=== PATIENT | male | born 1995 | race Caucasian/White ===

== ENCOUNTER 2020-11-03 16:19 | Outpatient (RCR) | payer BC, MEDICARE, SELFPAY | END 2020-11-03 19:00 | disposition home or self-care (01) | LOC: PT 16:19 | PROVIDERS: PCP Family Medicine; Referring Provider Nurse Practitioner Primary Care; Visit Provider Nurse Practitioner Primary Care | DX: G82.20 Paraplegia, unspecified (principal); S24.102D Unspecified injury at T2-T6 level of thoracic spinal cord, subsequent encounter; Z99.3 Dependence on wheelchair | CPT/HCPCS: 97162 ==

== ENCOUNTER 2021-06-10 07:34 | Emergency (ER) | payer BC, MEDICARE, SELFPAY ==
[2021-06-10 07:35] VITALS: BP 114/45; PULSE 108; RESP 16; TEMP 36.6; O2SAT 100; BMI 31.1
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
--- NOTE | 2021-06-10 08:12 | EX.ED.DYSGE1 ---
HPI History of Present Illness Chief Complaint: Flank Pain Detail of Chief Complaint: Concern for UTI or kidney stone Informant: patient Narrative Narrative: Patient presents secondary to concern for UTI or kidney stone. He has history of paraplegia and states he cannot feel anything below his nipple line. He has a suprapubic catheter. He states due to change in color and smell of his urine he is concerned he may have an infection or possibly a kidney stone. He does report having a mild headache with some nausea. He had diarrhea yesterday. He denies fever or chills. [facility] Medical History Paraplegia following spinal cord injury Home Medications albuterol sulfate [Ventolin Hfa] INHALATION PRN PRN 09/04/15 [History Last Taken Unknown] baclofen 10 mg PO BID 09/04/15 [History Last Taken Unknown] dextroamphetamine-amphetamine [Adderall 20 mg Tablet] 20 mg PO DAILY 03/17/16 [History Last Taken Unknown] tizanidine 1 mg PO QHS 03/17/16 [History Last Taken Unknown] levofloxacin 750 mg PO DAILY #4 tab 06/10/21 [Rx Last Taken Unknown] Allergy/AdvReac Type Severity Reaction Status Date / Time hydromorphone HCl Allergy Anaphylaxis Verified 06/10/21 07:38 [From Dilaudid] Social History Smoking Status: Former smoker ROS ROS ED Constitutional Constitutional ED: Denies chills or fever(s) Eyes Eyes: Denies change in vision ENT ENT ED: Denies sore throat Cardiovascular Cardiovascular: Denies chest pain Respiratory/Chest Respiratory/Chest: Denies cough or dyspnea Gastrointestinal Gastrointestinal: Reports nausea; Denies abdominal pain, diarrhea or vomiting Genitourinary Genitourinary ED: Reports other Details: Change in color and smell of urine Integumentary Denies rash Neurologic Neurologic: Reports headache(s); Denies weakness Psychiatric Psychiatric: Denies anxiety or depression Allergic/Immunologic Allergic/Immunologic ED: Denies urticaria EXAM Physical Exam Const Vital Signs: 06/10/21 07:35 Temperature 97.9 F Temperature Source Temporal Pulse Rate 108 H Respiratory Rate 16 Blood Pressure 114/45 L Blood Pressure Mean 68 Pulse Ox 100 Oxygen Delivery Method Room Air Positive well nourished and well developed General Appearance ED: well developed Eyes PERRL and EOMs intact bilaterally Chest Wall inspection of chest normal and palpation of chest normal Resp normal respiratory effort and clear to auscultation bilaterally Cardio regular rate and regular rhythm GI normal to inspection, nondistended, normoactive bowel sounds Palpation: soft Extremity Extremity Narrative: Muscle atrophy lower extremities Neuro oriented x3 Sensorium / Orientation: alert Psych mental status grossly normal Skin no rashes or lesions noted MDM MDM MDM Narrative Medical decision making narrative: Lab work, urinalysis, CT flank obtained. Patient was given Toradol and Zofran for pain and nausea. Lab Data Attestation: I reviewed the patient's lab results. Labs: Laboratory Results - last 24 hr 06/10/21 06/10/21 06/10/21 08:19 08:19 08:28 WBC 6.1 RBC 4.54 L Hgb 13.2 Hct 39.3 L MCV 86.6 MCH 29.1 MCHC 33.6 RDW Std Deviation 40.6 RDW Coeff of Qi 13.0 Plt Count 259 MPV 10.6 Immature Gran % (Auto) 0.300 Neut % (Auto) 63.6 Lymph % (Auto) 22.0 Alfalfa % (Auto) 7.9 Eos % (Auto) 5.4 H Baso % (Auto) 0.8 Absolute Neuts (auto) 3.9 Absolute Lymphs (auto) 1.34 Nucleated RBC % 0 Sodium 137 Potassium 4.1 Chloride 105 Carbon Dioxide 25.0 Anion Gap 7 BUN 14 Creatinine 0.91 Estim Creat Clear Calc 137.80 Est GFR (MDRD) Af Amer 128 Est GFR (MDRD) Non-Af 105 BUN/Creatinine Ratio 15.3 Glucose 97 Calcium 8.7 Urine Color Yellow Urine Clarity Sl. Cloudy Urine pH 8.0 Ur Specific [place] 1.015 Urine Protein 100 H Urine Glucose (UA) Normal Urine Ketones Negative Urine Occult Blood 150 H Urine Nitrite Positive H Urine Bilirubin Negative Urine Urobilinogen Normal Ur Leukocyte Esterase 500 H Urine RBC 10-25 SEEN Urine WBC 25-50 SEEN Ur Squamous Epith Cells 0-5 SEEN Amorphous Sediment 1+ Urine Bacteria 2+ Urine Mucus 0 SEEN Radiography Diagnostic Testing: Radiology Impression Abdomen/Pelvis CT 06/10/21 07:51 IMPRESSION: No acute abnormality is seen. Electronically Signed: Aram Hernandez MD at 9:27 EDT , Service support , Treatment and Re-Evaluation Comments:: Patient's test results reviewed. Renal function is normal. Urinalysis does reveal infection and urine culture is sent. He received a dose of IV Rocephin. CT flank is unremarkable. Patient be discharged with a prescription for Levaquin. He will be referred to urology for follow-up. Discharge Plan Triage Chief Complaint: Flank Pain ED Provider: Deepika Sanchez Dx/Rx/DC Orders Clinical Impression: Acute UTI Instructions: ED Bladder Infection, Male (Adult) Prescriptions: New levofloxacin 750 mg tablet 750 mg PO DAILY Qty: 4 RF: 0 No Action baclofen 10 MG tablet 10 mg PO BID RF: 0 albuterol sulfate [Ventolin HFA] 1 INHALER inhaler inhalation PRN PRN (Reason: Sob &/Or Wheezing) RF: 0 tizanidine 2 MG tablet 1 mg PO QHS RF: 0 dextroamphetamine-amphetamine [Adderall] 20 MG tablet 20 mg PO DAILY RF: 0 Primary Care Provider: Care Physician,No Primary Referrals: Jose Bardales MD [STAFF PHYSICIAN] - 1-2 Weeks Care Physician,No Primary [Primary Care Provider] - Disposition Disposition: Home, Self Care
[2021-06-10] MEDS: Ketorolac 30 MG/ML Syringe IV (08:23)
[2021-06-10] MEDS: 0.9% Normal Saline 1,000 ML 150 ML IV (08:23)
[2021-06-10] MEDS: Ondansetron 4 MG/2 ML Vial IV (08:23)
[2021-06-10 08:30] LABS: Absolute Lymphocyte Count 1.34 X10^3/uL (0.83-4.51); Absolute Neutrophil Count 3.9 X10^3/uL (2.0-7.7); Basophil# 0.05 X10^3/uL; Basophil% 0.8 % (0-1); Eosinophil# 0.33 X10^3/uL; Eosinophils% 5.4 % (0-5); Hematocrit 39.3 % (40-54); Hemoglobin 13.2 g/dL (13.0-16.5); Lymphocyte # 1.34 X10^3/ul (0.83-4.51); Mean Corp Hgb Conc 33.6 g/dL (32-36); Mean Corpuscular Hgb 29.1 pg (27.0-32.0); Mean Corpuscular Volume 86.6 fL (80-94); Mean Platelet Vol. 10.6 fl (6.2-12.0); Monocyte# 0.48 X10^3/uL; Monocyte% 7.9 % (0-10); NRBC Flagged by Analyzer 0 % (0-5); Neutrophil # 3.87 X10^3/uL (2.7-7.7); Neutrophil % 63.6 % (47-70); Platelet Count 259 K/mm3 (150-450); RBC Distribution Width SD 40.6 fl (35.1-43.9); Red Blood Count 4.54 M/mm3 (4.6-6.2); White Blood Count 6.1 K/mm3 (4.4-11.0)
[2021-06-10 08:33] LABS: Mucous, Urine 0 SEEN /hpf (<or=2+)
[2021-06-10 08:41] LABS: Anion Gap 7 (5-15); BUN 14 mg/dL (7-18); BUN/Creat Ratio 15.3 RATIO (10-20); Calcium,Total 8.7 mg/dL (8.5-10.1); Chloride 105 mmol/L (98-107); Creatinine, Serum 0.91 mg/dL (0.70-1.30); EST Glomerular Filtration Rate 105 mL/min (>60); Est Glom Filt Rate - Afr Amer 128 mL/min (>60); Glucose 97 mg/dL (74-106); Potassium 4.1 mmol/L (3.5-5.1); Sodium Level 137 mmol/L (136-145)
[2021-06-10 08:42] LABS: Color, Urine Yellow (Yellow); Glucose, Dipstick Normal (Normal); Ketone-Dipstick Negative (Negative); Leukocyte Esterase-Dipstick 500 /ul (Negative); Nitrite-Dipstick Positive (Negative); Occult Blood-Urine 150 /ul (Negative); Protein-Dipstick 100 mg/dl (Negative); Specific Gravity, Urine 1.015 (1.002-1.030); Urine Bilirubin Dipstick Negative (Negative); Urine Clarity Sl. Cloudy (Clear); Urine Urobilinogen Normal (Normal)
[2021-06-10 08:51] LABS: Amorphous Sediment 1+; Bacteria 2+ /hpf (None Seen); Red Blood Cells-Urine 10-25 SEEN /hpf (0-5); Squamous Epithelial Cells - UA 0-5 SEEN /hpf (0-5); White Blood Cells 25-50 SEEN /hpf (0-5)
[2021-06-10] MEDS: Ceftriaxone 1 GM/50 ML BAG IV (09:08)
[2021-06-10 10:37] VITALS: BP 102/50; PULSE 55; RESP 18; O2SAT 97
== END 2021-06-10 10:39 | disposition home or self-care (01) ==
PROVIDERS: Emergency Provider Emergency Medicine
DX: N39.0 Urinary tract infection, site not specified (principal); Z87.891 Personal history of nicotine dependence
CPT/HCPCS: 74176; 80048; 81001; 85025; 87077; 87086; 87088; 87186; 96361; 96365; 96375; 99284; J2405

== ENCOUNTER 2022-02-04 01:55 | Emergency (ER) | payer BC, MEDICARE, SELFPAY ==
[2022-02-04 01:56] VITALS: BP 155/83; PULSE 72; RESP 18; TEMP 36.6; O2SAT 97; BMI 28.5
--- NOTE | 2022-02-04 02:10 | RAD_ITS ---
EXAM: XR ABDOMEN, 2 VIEWS AND XR CHEST, 1 VIEW CLINICAL INDICATION: constipation TECHNIQUE: Frontal view of the chest, frontal view of the abdomen/pelvis and upright or decubitus view of the abdomen. This report was created using [employer] report generation technology. COMPARISON: None. 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 Moderate osteoarthrosis of the left hip joint. No acute appearing fracture or malalignment. No other unusual lytic or sclerotic lesions of bone Soft tissues are unremarkable. 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 Moderate osteoarthrosis of the left hip joint. No acute appearing fracture or malalignment. Electronically Signed: Evangelist Jaime MD at 3:01 EDT ,
--- NOTE | 2022-02-04 02:10 | CT_ITS ---
EXAM: CT HEAD WITHOUT INTRAVENOUS CONTRAST CLINICAL INDICATION: headache TECHNIQUE: Multiple axial images were obtained of the head without intravenous contrast. CTDIvol = ( 44.99 ) mGy, DLP = ( 846.73 ) mGycm This CT exam was performed using one or more of the following dose reduction techniques: automated exposure control, adjustment of the mA and/or kV according to patient size, and/or use of iterative reconstruction technique. This report was created using [employer] report generation technology. COMPARISON: None. FINDINGS: BRAIN AND EXTRA-AXIAL SPACES: Unremarkable. No intra- or extra-axial hemorrhage. No evidence of acute infarct. No intracranial mass or mass effect. There is preservation of the antonio/white matter interface. Posterior fossa structures are unremarkable. Ventricles are appropriate for age. No hydrocephalus. Basal cisterns are patent. BONES/JOINTS: Unremarkable. No discrete lytic or blastic abnormalities. SINUSES: Mild scattered paranasal sinus mucosal thickening with no air-fluid levels. MASTOID AIR CELLS: Unremarkable. Clear. ORBITS: Visualized globes, extraocular muscles, optic nerves and retrobulbar fat appear unremarkable. CT/Brain/Head without Contrast IMPRESSION: Negative head/brain CT without intravenous contrast. Electronically Signed: Evangelist Jaime MD at 2:51 EDT ,
--- NOTE | 2022-02-04 02:14 | EDS_ITS ---
HPI History of Present Illness Chief Complaint: Headache Informant: patient Narrative Narrative: Patient's primary complaint is constipation. He does have a history of upper thoracic spinal cord injury 7 years ago. He has some chronic constipation but normally moves his bowels about every 2 occasionally 3 days. Its been about 5 days since he had a normal bowel movement. He has decreased sensation in the abdomen so he does not really feel discomfort. He is eating and drinking normally. No fevers or chills. Tonight he had a headache. This occurred somewhat after trying to move his bowels but was not actually an acute sudden onset or thunderclap. It is mostly diffuse. No neurologic complaint. Nothing makes symptoms specifically better or worse. He feels the combination of headache with some sweaty in his shoulders and head and nausea was typical of a autonomic dysreflexia episode. This was likely brought on by trying to have a bowel movement. It is improving now. [facility] Medical History Paraplegia following spinal cord injury Home Medications baclofen 10 mg PO BID 09/04/15 [History Last Taken Unknown] Allergy/AdvReac Type Severity Reaction Status Date / Time hydromorphone HCl Allergy Anaphylaxis Verified 06/10/21 07:38 [From Dilaudid] Social History Smoking Status: Former smoker ROS ROS ED Constitutional Constitutional ED: Denies chills or fever(s) Eyes Eyes: Denies blurry vision ENT ENT ED: Denies rhinorrhea or sore throat Cardiovascular Cardiovascular: Denies chest pain or palpitations Respiratory/Chest Respiratory/Chest: Denies cough or dyspnea Gastrointestinal Gastrointestinal: Reports constipation and nausea; Denies vomiting Musculoskeletal Musculoskeletal: Denies myalgias Integumentary Denies rash Neurologic Neurologic: Reports headache(s); Denies paresthesias or weakness Psychiatric Psychiatric: Denies anxiety or depression Endocrine Endocrinology: Denies polydipsia or polyuria Allergic/Immunologic Allergic/Immunologic ED: Denies urticaria EXAM Physical Exam Const Vital Signs: 02/04/22 01:56 Temperature 97.9 F Temperature Source Oral Pulse Rate 72 Respiratory Rate 18 Blood Pressure 155/83 H Blood Pressure Mean 107 Pulse Ox 97 Oxygen Delivery Method Room Air Positive well nourished and well developed; Negative for unkempt Constitutional Narrative: Patient awake alert and appropriate. Nontoxic in appearance. General Appearance ED: well developed and NAD; Negative for unkempt, cyanotic or diaphoretic HEENT Reports moist mucous membranes Negative for trauma or tenderness Eyes PERRL and EOMs intact bilaterally Eyes Narrative: No photophobia. Neck no lymphadenopathy, supple and no JVD Neck Narrative: No pain with motion. No meningismus General: Negative for tenderness Chest Wall inspection of chest normal Resp normal respiratory effort and clear to auscultation bilaterally Effort and Inspection: Negative for pain with movement Auscultation: Negative for rales, rhonchi or wheezes Cardio regular rate and regular rhythm GI normal to inspection, nondistended, normoactive bowel sounds, non-tender, non- distended and no masses Auscultation: normoactive bowel sounds Palpation: soft; Negative for tender or guarding Narrative: Patient has long-term suprapubic catheter. It has been draining well. He did change it just to make sure that that was not causing his symptoms of autonomic dysreflexia. He has had normal urine output and appearance. Back/Spine no CVA tenderness Extremity Extremity Narrative: Wasting of the lower extremities consistent with his spinal cord injury. Neuro oriented x3 and CN's II-XII intact bilaterally Neuro Narrative: Decreased motor and sensation in the lower body which is chron ic and unchanged. Sensorium / Orientation: alert; Negative for orientation impaired, lethargic or stuporous Psych mental status grossly normal Appearance: Negative for unkempt Attitude: No agitated Mood & Affect: Negative for depressed, anxious or tearful Skin no rashes or lesions noted MDM MDM MDM Narrative Medical decision making narrative: Patient's labs show normal white count hemoglobin platelets in the CBC. Electrolytes are overall unremarkable. Glucose is minimally elevated at 119. Liver function test lipase normal. X- rays show orthopedic changes but no acute process of the bowels or signs of obstruction. There is some increased stool but not a focal large amount just in the rectum. We discussed options. We tried enema. The only difficulty is that this patient cannot really hold the fluid in. Therefore we did not get a large amount of stool. We again discussed options. We will send him home with magnesium citrate. He will use laor-ozo-iocrebj MiraLAX and wean off over a week. We talked about the other symptoms that he got with trying to move the bowels. He states he normally does get some autonomic dysreflexia with bowel movements but this was more than normal. However, he also has not moved his bowels for some time. We discussed reasons to return. Lab Data Attestation: I reviewed the patient's lab results. Labs: Laboratory Results - last 24 hr 02/04/22 02/04/22 02:20 02:20 WBC 6.2 RBC 4.64 Hgb 13.6 Hct 39.4 L MCV 84.9 MCH 29.3 MCHC 34.5 RDW Std Deviation 40.2 RDW Coeff of Qi 13.0 Plt Count 259 MPV 10.8 Immature Gran % (Auto) 0.300 Neut % (Auto) 59.8 Lymph % (Auto) 27.1 [place] % (Auto) 8.6 Eos % (Auto) 3.2 Baso % (Auto) 1.0 Absolute Neuts (auto) 3.7 Absolute Lymphs (auto) 1.68 Nucleated RBC % 0 Sodium 139 Potassium 3.6 Chloride 108 H Carbon Dioxide 26.0 Anion Gap 5 BUN 16 Creatinine 0.92 Estim Creat Clear Calc 131.21 Est GFR (MDRD) Af Amer 125 Est GFR (MDRD) Non-Af 104 BUN/Creatinine Ratio 17.3 Glucose 119 H Calcium 8.8 Total Bilirubin 0.40 AST 15 ALT 28 Alkaline Phosphatase 71 Total Protein 7.6 Albumin 3.7 Globulin 3.9 Albumin/Globulin Ratio 0.9 Lipase 151 Radiography Diagnostic Testing: Clinical Impression(s) from Imaging Studies Acute Abdomen Series 02/04/22 02:10 IMPRESSION: Chronic destructive changes about the right hip with 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 Moderate osteoarthrosis of the left hip joint. No acute appearing fracture or malalignment. Electronically Signed: Evangelist Jaime MD at 3:01 EDT , Brain CT 02/04/22 02:10 IMPRESSION: Negative head/brain CT without intravenous contrast. Electronically Signed: Evangelist Jaime MD at 2:51 EDT , Discharge Plan Triage Chief Complaint: Headache ED Provider: Alen Paniagua Dx/Rx/DC Orders Clinical Impression: Constipation, Autonomic dysreflexia Instructions: ED Constipation (Adult) Prescriptions: No Action baclofen 10 MG tablet 10 mg PO BID RF: 0 Primary Care Provider: Care Physician,No Primary Referrals: Lynnette Conde MD [STAFF PHYSICIAN] - 3-5 Days if not improving Care Physician,No Primary [Primary Care Provider] - Disposition Disposition: Home, Self Care
[2022-02-04] MEDS: DiphenhydrAMINE 50 MG/ML Syringe 25 MG IV (02:20)
[2022-02-04] MEDS: Ondansetron 4 MG/2 ML Vial IV (02:20)
[2022-02-04 02:24] LABS: Absolute Lymphocyte Count 1.68 X10^3/uL (0.83-4.51); Absolute Neutrophil Count 3.7 X10^3/uL (2.0-7.7); Basophil# 0.06 X10^3/uL; Eosinophils% 3.2 % (0-5); Hematocrit 39.4 % (40-54); Hemoglobin 13.6 g/dL (13.0-16.5); Lymphocyte # 1.68 X10^3/ul (0.83-4.51); Lymphocyte % 27.1 % (19-41); Mean Corp Hgb Conc 34.5 g/dL (32-36); Mean Corpuscular Hgb 29.3 pg (27.0-32.0); Mean Corpuscular Volume 84.9 fL (80-94); Mean Platelet Vol. 10.8 fl (6.2-12.0); Monocyte# 0.53 X10^3/uL; Monocyte% 8.6 % (0-10); NRBC Flagged by Analyzer 0 % (0-5); Neutrophil % 59.8 % (47-70); Platelet Count 259 K/mm3 (150-450); RBC Distribution Width SD 40.2 fl (35.1-43.9); Red Blood Count 4.64 M/mm3 (4.6-6.2); White Blood Count 6.2 K/mm3 (4.4-11.0)
[2022-02-04 02:41] LABS: ALB/GLOB Ratio 0.9 RATIO (0.9-2.4); AST(SGOT) 15 U/L (15-37); Alanine Aminotransfer ALT/SGPT 28 U/L (16-61); Albumin, Serum 3.7 g/dL (3.2-5.0); Alkaline Phosphatase 71 U/L (45-117); Anion Gap 5 (5-15); BUN 16 mg/dL (7-18); BUN/Creat Ratio 17.3 RATIO (10-20); Calcium,Total 8.8 mg/dL (8.5-10.1); Chloride 108 mmol/L (98-107); Creatinine, Serum 0.92 mg/dL (0.70-1.30); EST Glomerular Filtration Rate 104 mL/min (>60); Est Glom Filt Rate - Afr Amer 125 mL/min (>60); Estimated Creatinine Clearance 131.21 ml/min; Globulin 3.9 g/dL (2.2-4.2); Glucose 119 mg/dL (74-106); Lipase 151 U/L (73-393); Potassium 3.6 mmol/L (3.5-5.1); Protein, Total 7.6 g/dL (6.4-8.2); Sodium Level 139 mmol/L (136-145)
[2022-02-04 03:47] VITALS: BP 144/78; PULSE 67; RESP 18; O2SAT 99
[2022-02-04] MEDS: Magnesium Citrate 300 ML PO (03:56)
== END 2022-02-04 04:00 | disposition home or self-care (01) ==
PROVIDERS: Emergency Provider Emergency Medicine; Visit Provider Emergency Medicine
DX: K59.00 Constipation, unspecified (principal); G90.4 Autonomic dysreflexia; Z87.891 Personal history of nicotine dependence
CPT/HCPCS: 70450; 74022; 80053; 83690; 85025; 96361; 96374; 96375; 99285; J7030; J2405

== ENCOUNTER 2024-05-18 20:24 | Emergency (ER) | payer BC, MEDICARE, SELFPAY ==
[2024-05-18 20:24] VITALS: BP 150/73; PULSE 85; RESP 14; TEMP 36.1; O2SAT 97
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
--- NOTE | 2024-05-18 20:38 | RAD_ITS ---
STUDY: X-RAY - CERVICAL SPINE REASON FOR EXAM: Male, 28 years old. Headache and neck pain after a fall TECHNIQUE: 3 view(s) of the cervical spine were obtained. COMPARISON: None FINDINGS: Normal anterior atlantoaxial articulation. Normal odontoid process. Normal cervical lordosis. Normal vertebral bodies and endplates. Normal disc space heights. Normal visualized intervertebral neuroforamina. The soft tissue structures are unremarkable. Surgical hardware in the upper thoracic spine and free of complication RAD/Cerv Spine 2 or 3 Views IMPRESSION: Normal x-ray examination of the visualized cervical spine. Electronically Signed: Temo Contreras MD at 21:51 EDT ,
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
[2024-05-18] MEDS: oxyCODONE 5 MG Tablet 10 MG PO (20:47)
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
== END 2024-05-18 22:26 | disposition home or self-care (01) ==
PROVIDERS: Emergency Provider Emergency Medicine; Visit Provider Emergency Medicine
DX: S16.1XXA Strain of muscle, fascia and tendon at neck level, initial encounter (principal); S39.012A Strain of muscle, fascia and tendon of lower back, initial encounter; F17.290 Nicotine dependence, other tobacco product, uncomplicated; S29.019A Strain of muscle and tendon of unspecified wall of thorax, initial encounter; V89.2XXA Person injured in unspecified motor-vehicle accident, traffic, initial encounter
CPT/HCPCS: 72040; 72072; 72100; 99282

== ENCOUNTER 2024-05-25 21:56 | Emergency (ER) | payer BC, MEDICARE, SELFPAY ==
[2024-05-25 21:57] VITALS: BP 152/60; PULSE 88; RESP 16; TEMP 36.4; O2SAT 98
[2024-05-25 22:09] VITALS: BMI 29.3
--- NOTE | 2024-05-25 22:41 | CT_ITS ---
STUDY: CT ABDOMEN AND PELVIS WITH CONTRAST REASON FOR EXAM: Male, 28 years old. low back, diffuse abd pain; paraplegic RADIATION DOSAGE (If Supplied By Facility): CTDIvol = ( 20.47 ) mGy, DLP = ( 1556.62 ) mGycm TECHNIQUE: IV 100mL Isovue-300 was administered. Transaxial images were obtained from the dome of the diaphragm to the symphysis pubis in the portal venous phase. Multiplanar coronal and sagittal images were reformatted. Individualized Dose Optimization Techniques Were Used For This CT. COMPARISON: Prior study dated: 06/10/2021 FINDINGS: LOWER CHEST: Lung bases are clear. No cardiomegaly or pericardial effusion. LIVER: The liver is normal in size, shape, and attenuation. No focal mass. GALLBLADDER AND BILIARY TREE: The gallbladder is normally distended. No gallstones. No gallbladder wall thickening or edema. No pericholecystic fluid. No intra- or extrahepatic biliary ductal dilation. PANCREAS: No focal cystic or solid mass. SPLEEN: Normal size without focal cystic or solid mass. ADRENAL GLANDS: No nodules. KIDNEYS AND URETERS: Normal renal size and position. No hydronephrosis or nephrolithiasis. PERITONEUM: No ascites or free air. No other fluid collection. BOWEL: The stomach is unremarkable. Normal caliber small bowel. There is no obstruction. No colonic wall thickening or inflammation. No evidence of acute appendicitis. LYMPH NODES: No enlarged mesenteric or retroperitoneal lymph nodes. VESSELS: Aorta is non-dilated. URINARY BLADDER: Suprapubic catheter in place. REPRODUCTIVE ORGANS: No pelvic masses. ABDOMINAL WALL: Radiopaque pump in the anterior right abdominal soft tissues. Calcifications overlie the right hip superficially. Fluid in the left trochanteric bursa region. BONES: Chronic deformity of the right hip. Absence of the femoral head. Joint space narrowing of the left hip. CT/Abdomen/Pelvis W IV Cont ONLY IMPRESSION: No acute finding in the abdomen or pelvis. No inflammatory change. Chronic changes of the right hip. Fluid at the left trochanteric bursa may be associated with bursitis. Electronically Signed: Kwaku Sanchez MD at 0:04 EDT ,
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
[2024-05-25 22:58] LABS: Absolute Lymphocyte Count 1.51 X10^3/uL (0.83-4.51); Absolute Neutrophil Count 4.3 X10^3/uL (2.0-7.7); Basophil# 0.05 X10^3/uL; Basophil% 0.7 % (0-1); Eosinophil# 0.15 X10^3/uL; Eosinophils% 2.2 % (0-5); Hematocrit 39.2 % (40-54); Hemoglobin 13.1 g/dL (13.0-16.5); Lymphocyte # 1.51 X10^3/ul (0.83-4.51); Lymphocyte % 22.6 % (19-41); Mean Corp Hgb Conc 33.4 g/dL (32-36); Mean Corpuscular Hgb 29.4 pg (27.0-32.0); Mean Corpuscular Volume 87.9 fL (80-94); Mean Platelet Vol. 10.8 fl (6.2-12.0); Monocyte# 0.66 X10^3/uL; Monocyte% 9.9 % (0-10); NRBC Flagged by Analyzer 0 % (0-5); Neutrophil # 4.28 X10^3/uL (2.7-7.7); Neutrophil % 64.2 % (47-70); Platelet Count 240 K/mm3 (150-450); RBC Distribution Width CV 12.7 % (11.6-14.6); RBC Distribution Width SD 41.2 fl (35.1-43.9); Red Blood Count 4.46 M/mm3 (4.6-6.2); White Blood Count 6.7 K/mm3 (4.4-11.0)
[2024-05-25 22:59] LABS: Mucous, Urine 0 SEEN /hpf (<or=2+); Squamous Epithelial Cells - UA 0 SEEN /hpf (0-5)
[2024-05-25 23:00] LABS: Color, Urine Yellow (Yellow); Glucose, Dipstick Normal (Normal); Ketone-Dipstick Negative (Negative); Leukocyte Esterase-Dipstick 100 /ul (Negative); Nitrite-Dipstick Positive (Negative); Occult Blood-Urine Negative /ul (Negative); Protein-Dipstick 15 mg/dl (Negative); Specific Gravity, Urine 1.015 (1.002-1.030); Urine Bilirubin Dipstick Negative (Negative); Urine Clarity Clear (Clear); Urine Urobilinogen 1 mg/dl (Normal)
[2024-05-25] MEDS: 0.9% Normal Saline (1000mL) 1,000 ML 999 ML IV (23:00)
[2024-05-25] MEDS: fentaNYL 100 MCG/2 ML Ampul 50 MCG IV (23:00)
[2024-05-25] MEDS: Ondansetron 4 MG/2 ML Vial IV (23:00)
[2024-05-25 23:08] LABS: Bacteria 1+ /hpf (None Seen); Red Blood Cells-Urine 0-5 SEEN /hpf (0-5); White Blood Cells 0-5 SEEN /hpf (0-5)
[2024-05-25 23:18] LABS: ALB/GLOB Ratio 1.1 RATIO (0.9-2.4); AST(SGOT) 16 U/L (15-37); Alanine Aminotransfer ALT/SGPT 28 U/L (16-61); Albumin, Serum 3.9 g/dL (3.2-5.0); Alkaline Phosphatase 63 U/L (45-117); Anion Gap 4 (5-15); BUN 12 mg/dL (7-18); BUN/Creat Ratio 12.3 RATIO (10-20); Chloride 107 mmol/L (98-107); Creatinine, Serum 0.98 mg/dL (0.70-1.30); EST Glomerular Filtration Rate 96 mL/min (>60); Est Glom Filt Rate - Afr Amer 116 mL/min (>60); Estimated Creatinine Clearance 137.66 ml/min; Globulin 3.7 g/dL (2.2-4.2); Glucose 99 mg/dL (74-106); Lipase 66 U/L (13-75); Potassium 3.4 mmol/L (3.5-5.1); Protein, Total 7.6 g/dL (6.4-8.2); Sodium Level 140 mmol/L (136-145)
[2024-05-25 23:31] LABS: Lactic Acid 0.6 mmol/L (0.4-1.9)
[2024-05-26] MEDS: Ceftriaxone 1 GM/50 ML BAG IV (00:21)
[2024-05-26 00:49] VITALS: BP 145/63; PULSE 81; RESP 16; TEMP 36.5; O2SAT 98
== END 2024-05-26 00:50 | disposition home or self-care (01) ==
PROVIDERS: Emergency Provider Emergency Medicine; Visit Provider Emergency Medicine
DX: M54.50 Low back pain, unspecified (principal); G82.20 Paraplegia, unspecified; R10.84 Generalized abdominal pain; F17.290 Nicotine dependence, other tobacco product, uncomplicated; Z99.3 Dependence on wheelchair
CPT/HCPCS: 74177; 80053; 81001; 83605; 83690; 85025; 87077; 87086; 87088; 87149; 87186; 96361; 96374; 96375; 96376; 99283; J7030; J7050; Q9967; A4216; J2405

== ENCOUNTER 2025-06-12 17:20 | Emergency (ER) | payer MEDICARE, SELFPAY ==
[2025-06-12 17:20] VITALS: BP 123/50; PULSE 80; RESP 14; TEMP 36.4; O2SAT 98
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
[2025-06-12] MEDS: Tetracaine 0.5% Ophthalmic Bottle 1 DRP LEFT EYE (17:51)
[2025-06-12] MEDS: Gentamicin Sulfate 1 OPTH.BTL 2 DRP LEFT EYE (17:58)
[2025-06-12 18:14] VITALS: BP 125/62; PULSE 76; RESP 16; TEMP 36.6; O2SAT 99
--- NOTE | 2025-06-12 20:27 | CM.ED ---
Social Work Reason for visit: No PCP Patient states that he does have a PCP but they are in [place] and he will not travel up that far to see him. [facility] provider list was offered, patient stated that the list would be very helpful. No further needs identified at this time. Holley Pacheco, REAL ESTATE INTERN, ADMINISTRATIVE TECHNICIAN
== END 2025-06-12 18:15 | disposition home or self-care (01) ==
PROVIDERS: Emergency Provider Emergency Medicine; Visit Provider Emergency Medicine
DX: S05.02XA Injury of conjunctiva and corneal abrasion without foreign body, left eye, initial encounter (principal); F17.290 Nicotine dependence, other tobacco product, uncomplicated; R06.09 Other forms of dyspnea; W22.8XXA Striking against or struck by other objects, initial encounter
CPT/HCPCS: 99283

== ENCOUNTER 2025-07-22 20:26 | Emergency (ER) | payer MEDICARE, SELFPAY ==
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
[2025-07-22 20:26] VITALS: BP 160/67; PULSE 51; RESP 16; TEMP 36.1; O2SAT 99; BMI 30.3
--- NOTE | 2025-07-22 20:42 | ED.RN ---
Pt states he goes often goes a couple weeks without a bowel movement. However, today he reports having a liquid yellow stool.
--- NOTE | 2025-07-22 21:06 | EDS_ITS ---
HPI History of Present Illness Chief Complaint: Constipation Narrative Narrative: Patient is a 29-year-old male presenting to the emergency department for abdominal pain that started today. Patient has a past medical history of paraplegia for the past 10 years and is wheelchair-bound. Patient states that he cannot feel anything in his abdomen but he thinks it is pain. He reports nausea with no vomiting. States he cannot "remember the last time I pooped". However then states that he had a small bowel movement today. No recent antibiotic use. He does have a indwelling suprapubic catheter and states that his urine has been more dark than normal. [facility] Medical History ADHD Presence of intrathecal baclofen pump Paraplegia following spinal cord injury Home Medications Medication Instructions Recorded Last Taken Type PAIN PUMP (INFORMATIONAL USE 07/22/25 Unknown Hist ory ONLY-PATIENT HAS BACLOFEN PUMP) Allergy/AdvReac Type Severity Reaction Status Date / Time hydromorphone HCl (From Allergy Anaphylaxis Verified 07/22/25 20:26 Dilaudid) Social History Smoking Status: Current every day smoker tobacco type: e-cigarettes ROS ROS ED ROS Narrative see HPI EXAM Physical Exam Narrative Exam Narrative: Vital signs: Reviewed General: Alert and oriented x 3. No acute distress HEENT: Head is normocephalic and atraumatic, sinuses nontender, pupils equal round and reactive. Nares are patent. Oropharynx and throat exams normal. Neck: Supple without lymphadenopathy nontender Cardiovascular: Regular rate and rhythm, no murmurs. No rubs or gallops. Normal S1 and S2 Respiratory: Clear to auscultation bilaterally. No wheezes, rales, rhonchi Abdominal: Soft and mildly tender to palpation diffusely. There is a surgical scar in the right lower quadrant from his pain pump insertion. Suprapubic catheter in place draining dark yellow urine. Normal bowel sounds. No guarding or rebound. Skin: No rash or redness. Neurological: Paraplegia The rest of the physical exam is unremarkable Const Vital Signs: 07/22/25 20:26 07/22/25 22:26 07/22/25 23:11 Temperature 97 F L 97 F L Temperature Source Oral Pulse Rate 51 L 77 77 Respiratory Rate 16 18 18 Blood Pressure 160/67 H 128/79 H 128/79 H Blood Pressure Mean 98 95 95 Pulse Ox 99 99 99 Oxygen Delivery Method Room Air MDM MDM MDM Narrative Medical decision making narrative: Patient is a 29-year-old male presenting to the emergency department for abdominal pain and nausea. Patient was seen and examined. Vitals are stable. Patient resting bed comfortably no acute distress. Differential includes but is not limited to: UTI, obstruction, constipation, colitis CBC with no leukocytosis and normal hemoglobin. CMP with no significant abnormalities. Patient reports that his Armstrong catheter bag was replaced today, urine was drawn off this and does show evidence of possible infection however does appear to be contaminated, urine culture sent. I discussed the urine results with the patient at bedside. I recommended waiting for the urine culture result before being treated and patient is in agreement. States he does not want treatment because it is usually contaminated. CT abdomen pelvis shows dense colonic stool suspicious for constipation. Skin thickening of the bilateral gluteal regions. Correlate clinically to exclude ulcers. Patient was reevaluated and gluteal exam was completed with RN at bedside. No signs of ulcers or wounds on the buttocks or upper legs. Discussed constipation management with the patient for home. He states only magnesium citrate works for him and he states he will do this tomorrow. Patient discharged from the Emergency Department. I do not feel that the patient's evaluation reveals any acute reason for admission at this time. I instructed them to either follow-up with their primary care physician or promptly return to the Emergency Department for reevaluation should symptoms worsen or new symptoms develop. I explained what symptoms would indicate the need to return to the emergency department. Shared decision making was used. The patient voiced understanding of the treatment plan and is agreeable with it. Clinical impression: constipation History & Record Review Discussion w/independent historian: Patient Lab Data Attestation: I reviewed the patient's lab results. Labs: Laboratory Results - last 24 hr 07/22/25 07/22/25 21:22 21:54 WBC 8.6 RBC 4.80 Hgb 14.3 Hct 40.9 MCV 85.2 MCH 29.8 MCHC 35.0 RDW Std Deviation 41.8 RDW Coeff of Qi 13.4 Plt Count 258 MPV 10.3 Immature Gran % (Auto) 0.200 Neut % (Auto) 76.4 H Lymph % (Auto) 13.7 L [place] % (Auto) 7.3 Eos % (Auto) 1.7 Baso % (Auto) 0.7 Absolute Neuts (auto) 6.6 Absolute Lymphs (auto) 1.18 Nucleated RBC % 0 Sodium 139 Potassium 4.3 Chloride 103 Carbon Dioxide 25.1 Anion Gap 12 BUN 17 Creatinine 0.99 Estim Creat Clear Calc 137.12 Est GFR (MDRD) Non-Af 104 BUN/Creatinine Ratio 16.9 Glucose 91 Calcium 9.7 Total Bilirubin 0.79 AST 23 ALT 25 Alkaline Phosphatase 73 Total Protein 7.7 Albumin 4.4 Globulin 3.3 Albumin/Globulin Ratio 1.4 Lipase 48 Urine Color Yellow Urine Clarity Turbid Urine pH 7.0 Ur Specific [place] 1.010 Urine Protein 30 H Urine Glucose (UA) Normal Urine Ketones Negative Urine Occult Blood 50 H Urine Nitrite Negative Urine Bilirubin Negative Urine Urobilinogen 4 H Ur Leukocyte Esterase 500 H Urine RBC 0-5 SEEN Urine WBC 25-50 SEEN Ur Squamous Epith Cells 0-5 SEEN Triple Phos Crystals 1+ Amorphous Sediment 2+ Urine Bacteria 3+ Urine Mucus 0 SEEN Radiography Diagnostic Testing: Clinical Impression(s) from Imaging Studies Abdomen/Pelvis CT 07/22/25 21:06 IMPRESSION: Dense colonic stool suspicious for constipation. Collapsed urinary bladder around suprapubic catheter. Skin thickening of the bilateral gluteal regions. Correlate clinically to exclude ulcers. Severe degenerative changes of the right hip with right iliac bone fixation hardware. Reading Location: [facility] Discharge Plan Triage Chief Complaint: Constipation ED Provider: Sofia Klein Dx/Rx/DC Orders Clinical Impression: Constipation, Abdominal pain Instructions: Abdominal Pain, ED Constipation (Adult) Prescriptions: No Action PAIN PUMP (INFORMATIONAL USE ONLY-PATIENT HAS BACLOFEN PUMP) Stand Alone Forms: ED Work / School Excuse Primary Care Provider: Care Physician,No Primary Referrals: Kate Borges MD [Med Staff - Homeopathic Doctor, Internal Medicine] - As soon as possible Care Physician,No Primary [Primary Care Provider, Medical] Activity Restrictions/Additional Instructions: Please take mag citrate tomorrow as discussed. Your evaluation in the Emergency Department did not reveal any acute reason for admission. However, I want to emphasize that you may be early in the course of a disease process or illness even if it is not present. For this reason you should follow-up within 24 hours for reevaluation with either your primary care physician or if necessary back here in the Emergency Department. You should return to the Emergency Department immediately if your symptoms worsen or new symptoms develop. Print Language: Fijian Disposition Disposition: Home, Self Care Discharge Date/Time: 07/22/25 23:18
--- NOTE | 2025-07-22 21:06 | CT_ITS ---
PROCEDURE: ABDOMEN/PELVIS W IV CONT ONLY 07/22/2025 REASON FOR EXAM: ABD PAIN, CONSTIPATION TECHNIQUE: Procedure Code: [id number] Modality: CT Procedure: ABDOMEN/PELVIS W IV CONT ONLY Coronal and Sagittal reconstruction series were provided. CONTRAST: Isovue 370 VOLUME: 96 mL One or more dose reduction techniques were used (e.g., Automated exposure control, adjustment of the mA and/or kV according to patient size, use of iterative reconstruction technique. RADIATION DOSE SUMMARY: CTDlvol: 9+ 19 mGy DLP: 1087 mGycm COMPARISON: 05/26/2024. FINDINGS: Right anterior abdominal wall battery pack. Skin thickening of the bilateral gluteal regions. Correlate with physical exam to exclude ulcers. Right iliac bone fixation. Severe degenerative changes of the right hip. Normal caliber abdominal aorta. No suspicious lymphadenopathy. The liver, gallbladder, pancreas, spleen, and adrenals are unremarkable. Symmetric enhancement of bilateral kidneys. No hydroureteronephrosis. Urinary bladder is collapsed around a suprapubic catheter. Normal caliber large and small bowel. Dense colonic stool suspicious for constipation. CT/Abdomen/Pelvis W IV Cont ONLY IMPRESSION: Dense colonic stool suspicious for constipation. Collapsed urinary bladder around suprapubic catheter. Skin thickening of the bilateral gluteal regions. Correlate clinically to exclu de ulcers. Severe degenerative changes of the right hip with right iliac bone fixation sabina yahaira. Reading Location: [id number]
[2025-07-22 21:42] LABS: Hematocrit 40.9 % (40-54); Hemoglobin 14.3 g/dL (13.0-16.5); Immature Granulocytes Count 0.020 X10^3/uL (0.0-0.0); Mean Corp Hgb Conc 35.0 g/dL (32-36); Mean Corpuscular Volume 85.2 fL (80-94); Mean Platelet Vol. 10.3 fl (6.2-12.0); NRBC Flagged by Analyzer 0 % (0-5); Platelet Count 258 K/mm3 (150-450); RBC Distribution Width CV 13.4 % (11.6-14.6); RBC Distribution Width SD 41.8 fl (35.1-43.9); Red Blood Count 4.80 M/mm3 (4.6-6.2); White Blood Count 8.6 K/mm3 (4.4-11.0)
[2025-07-22 22:06] LABS: AST(SGOT) 23 U/L (<=37); Alanine Aminotransfer ALT/SGPT 25 U/L (<=46); Albumin, Serum 4.4 g/dL (3.5-5.0); Alkaline Phosphatase 73 U/L (40-129); Anion Gap 12 (5-15); BUN 17 mg/dL (4-19); BUN/Creat Ratio 16.9 RATIO (10-20); Calcium,Total 9.7 mg/dL (7.6-11.0); Carbon Dioxide 25.1 mmol/L (21.0-32.0); Chloride 103 mmol/L (98-108); Estimated Creatinine Clearance 137.12 ml/min (50-250); Globulin 3.3 g/dL (2.2-4.2); Glucose 91 mg/dL (70-99); Lipase 48 U/L (13-75); Potassium 4.3 mmol/L (3.3-5.1)
[2025-07-22 22:15] LABS: Mucous, Urine 0 SEEN /hpf (<or=2+)
[2025-07-22 22:21] LABS: Color, Urine Yellow (Yellow); Glucose, Dipstick Normal (Normal); Ketone-Dipstick Negative (Negative); Leukocyte Esterase-Dipstick 500 /ul (Negative); Nitrite-Dipstick Negative (Negative); Occult Blood-Urine 50 /ul (Negative); Protein-Dipstick 30 mg/dl (Negative); Specific Gravity, Urine 1.010 (1.002-1.030); Urine Bilirubin Dipstick Negative (Negative)
[2025-07-22 22:26] VITALS: BP 128/79; PULSE 77; RESP 18; O2SAT 99
[2025-07-22 22:31] LABS: Triple Phosphate Crystals Ur 1+ /hpf (<or=1+)
[2025-07-22 22:33] LABS: Red Blood Cells-Urine 0-5 SEEN /hpf (0-5); Squamous Epithelial Cells - UA 0-5 SEEN /hpf (0-5)
[2025-07-22 23:11] VITALS: BP 128/79; PULSE 77; RESP 18; TEMP 36.1; O2SAT 99
--- NOTE | 2025-07-22 23:52 | ED.RN ---
PT. IN ED WAITING ROOM REQUESTING WORK NOTE. WORK NOTE PRINTED AND GIVEN TO PT. FROM PROVIDER D/C INSTRUCTIONS.
== END 2025-07-22 23:18 | disposition home or self-care (01) ==
PROVIDERS: Emergency Provider Student in an Organized Health Care Education/Training Program; Visit Provider Student in an Organized Health Care Education/Training Program
DX: K59.00 Constipation, unspecified (principal); G82.20 Paraplegia, unspecified; R10.9 Unspecified abdominal pain; Z97.8 Presence of other specified devices; Z96.0 Presence of urogenital implants; Z99.3 Dependence on wheelchair; F17.290 Nicotine dependence, other tobacco product, uncomplicated
CPT/HCPCS: 74177; 80053; 81001; 83690; 85025; 87077; 87086; 87088; 87186; 99282; Q9967; A4216

== ENCOUNTER 2025-07-24 06:36 | Emergency (ER) | payer MEDICARE, SELFPAY ==
[2025-07-24 06:37] VITALS: BP 120/51; PULSE 62; RESP 16; TEMP 36.4; O2SAT 98; BMI 27.3
--- NOTE | 2025-07-24 07:17 | EX.ED.DYSGE1 ---
HPI History of Present Illness Chief Complaint: Diarrhea Detail of Chief Complaint: Diarrhea Informant: patient Narrative Narrative: Patient presents to the emergency department with complaint of watery stools. Symptoms started yesterday. He was seen in the emergency department a couple days ago for constipation issues where he had imaging that showed constipation via CT scan. He was given magnesium citrate for home which she took yesterday. 2 to 3 hours later started having watery stool. Patient states that anytime he drinks any water he gets nauseated and immediately puts on watery stool. Patient is a paraplegic. Describes some mild abdominal discomfort although he does not have total sensation to his abdomen. Has history of a baclofen pump. Denies recent antibiotic usage. He denies fever. No other abdominal surgeries. [facility] Medical History ADHD Presence of intrathecal baclofen pump Paraplegia following spinal cord injury Home Medications ?Medication ?Instructions ?Recorded ?Last Taken ?Type PAIN PUMP (INFORMATIONAL USE 07/22/25 Unknown History ONLY-PATIENT HAS BACLOFEN PUMP) Allergy/AdvReac Type Severity Reaction Status Date / Time hydromorphone HCl (From Allergy Anaphylaxis Verified 07/24/25 06:37 Dilaudid) Social History Smoking Status: Current every day smoker tobacco type: e-cigarettes ROS ROS ED Review of Systems ROS Unobtainable: other Constitutional Constitutional ED: Reports lethargy; Denies chills, fever(s), sweats or weight loss Eyes Eyes: Denies blurry vision, change in vision or diplopia ENT ENT ED: Denies rhinorrhea or sore throat Cardiovascular Cardiovascular: Denies chest pain, orthopnea or racing heartbeat Respiratory/Chest Respiratory/Chest: Denies cough, dyspnea, dyspnea on exertion, orthopnea or sputum Gastrointestinal Gastrointestinal: Reports abdominal pain, diarrhea and nausea; Denies vomiting Genitourinary Genitourinary ED: Denies dysuria, hematuria or urinary frequency Musculoskeletal Musculoskeletal: Denies arthralgias, back pain, myalgias or neck pain Integumentary Denies abscess, Abrasions or rash Neurologic Neurologic: Denies headache(s) or weakness Psychiatric Psychiatric: Denies anxiety, depression or suicidal thoughts Endocrine Endocrinology: Denies polydipsia, polyphagia or polyuria Hematologic/Lymphatic Hematologic/Lymphatic: Denies easy bleeding, easy bruising or lymphadenopathy Allergic/Immunologic Allergic/Immunologic ED: Denies mouth swelling, tongue swelling or urticaria EXAM Physical Exam Const Vital Signs: 07/24/25 06:37 Temperature 97.6 F L Temperature Source Oral Pulse Rate 62 Respiratory Rate 16 Blood Pressure 120/51 L Blood Pressure Mean 74 Pulse Ox 98 Oxygen Delivery Method Room Air Positive well nourished and well developed General Appearance ED: well developed and NAD HEENT Reports TM's clear and moist mucous membranes normocephalic and atraumatic; Negative for trauma or tenderness Tympanic Membrane ED: Yes TM's clear Eyes PERRL and EOMs intact bilaterally General Eye ED: Negative for pale conjunctiva or scleral icterus Neck no lymphadenopathy, supple and no JVD General: Negative for tenderness Chest Wall inspection of chest normal and palpation of chest normal Chest: Negative for tenderness Resp normal respiratory effort and clear to auscultation bilaterally Effort and Inspection: Negative for respiratory distress or pain with movement Auscultation: Negative for rhonchi, wheezes or diminished lung sounds Cardio regular rate, regular rhythm, S1 normal heart sound, S2 normal heart sound and no murmurs Peripheral Pulses: pulses 2+ throughout GI normal to inspection, nondistended, normoactive bowel sounds, soft to palpation, non-tender, non-distended and no masses Back/Spine no CVA tenderness and no thoracic nor lumbar tenderness Extremity normal to inspection General Extremety ED: Negative for edema General Extremity: Negative for edema Neuro oriented x3, CN's II-XII intact bilaterally, no sensory deficits noted and gait normal Sensorium / Orientation: awake, alert, oriented to person, oriented to place and oriented to time Motor Exam: strength 5/5 throughout and strength abnormal Psych mental status grossly normal Skin no rashes or lesions noted and no wounds MDM MDM MDM Narrative Medical decision making narrative: Patient presents to the emergency department with nausea and diarrhea. Seen in the emergency department yesterday for constipation was given MiraLAX. Clinically looks well. IV line established. CBC with differential obtained showed a normal white count of 7.2 with hemoglobin 13.5 and platelet count of 242. Chemistries were unremarkable. Clinically I do not feel he has a bowel obstruction and he had a CT scan of his abdomen pelvis yesterday do not feel this needs repeated. Patient was given Zofran 4 mg IV and a liter fluid bolus and felt improved after treatment. He would like a note for work. Suspect diarrhea likely related to the taking of the magnesium citrate. Patient has chronic constipation issues. Patient tells me he has Zofran at home and does not need any for home. Lab Data Attestation: I reviewed the patient's lab results. Labs: Laboratory Results - last 24 hr 07/24/25 07:25 WBC 7.2 RBC 4.62 Hgb 13.5 Hct 39.3 L MCV 85.1 MCH 29.2 MCHC 34.4 RDW Std Deviation 41.5 RDW Coeff of Qi 13.3 Plt Count 242 MPV 10.4 Immature Gran % (Auto) 0.400 Neut % (Auto) 76.3 H Lymph % (Auto) 13.1 L Dickey % (Auto) 7.7 Eos % (Auto) 1.7 Baso % (Auto) 0.8 Absolute Neuts (auto) 5.5 Absolute Lymphs (auto) 0.94 Nucleated RBC % 0 Sodium 136 Potassium 4.4 Chloride 103 Carbon Dioxide 23.0 Anion Gap 10 BUN 18 Creatinine 0.68 L Estim Creat Clear Calc 177.88 Est GFR (MDRD) Non-Af 128 BUN/Creatinine Ratio 26.8 H Glucose 100 H Calcium 8.9 Discharge Plan Triage Chief Complaint: Diarrhea Other Complaint: Nausea/Vomiting/Diarrhea ED Provider: Klaus Sanchez Dx/Rx/DC Orders Clinical Impression: Diarrhea, Nausea Instructions: ED Diarrhea, Unknown Cause, ED Vomiting (Adult) Prescriptions: No Action PAIN PUMP (INFORMATIONAL USE ONLY-PATIENT HAS BACLOFEN PUMP) Rx Instructions: pt does not know the dosage of the med. Primary Care Provider: Care Physician,No Primary Referrals: Care Physician,No Primary [Primary Care Provider, Medical] Print Language: [place] Disposition Disposition: Home, Self Care
[2025-07-24 07:35] LABS: Hematocrit 39.3 % (40-54); Hemoglobin 13.5 g/dL (13.0-16.5); Immature Granulocytes Count 0.030 X10^3/uL (0.0-0.0); Mean Corp Hgb Conc 34.4 g/dL (32-36); Mean Corpuscular Volume 85.1 fL (80-94); Mean Platelet Vol. 10.4 fl (6.2-12.0); NRBC Flagged by Analyzer 0 % (0-5); Platelet Count 242 K/mm3 (150-450); RBC Distribution Width CV 13.3 % (11.6-14.6); RBC Distribution Width SD 41.5 fl (35.1-43.9); Red Blood Count 4.62 M/mm3 (4.6-6.2); White Blood Count 7.2 K/mm3 (4.4-11.0)
[2025-07-24] MEDS: 0.9% Normal Saline (1000mL) 1,000 ML 1000 ML IV (07:38)
[2025-07-24 08:01] LABS: Anion Gap 10 (5-15); BUN 18 mg/dL (4-19); BUN/Creat Ratio 26.8 RATIO (10-20); Calcium,Total 8.9 mg/dL (7.6-11.0); Carbon Dioxide 23.0 mmol/L (21.0-32.0); Chloride 103 mmol/L (98-108); Estimated Creatinine Clearance 177.88 ml/min (50-250); Glucose 100 mg/dL (70-99); Potassium 4.4 mmol/L (3.3-5.1)
[2025-07-24 08:48] VITALS: BP 120/74; PULSE 53; RESP 16; TEMP 36.6; O2SAT 97
== END 2025-07-24 08:54 | disposition home or self-care (01) ==
PROVIDERS: Emergency Provider Emergency Medicine; Visit Provider Emergency Medicine
DX: R19.7 Diarrhea, unspecified (principal); G82.20 Paraplegia, unspecified; R11.10 Vomiting, unspecified; T14.90XS Injury, unspecified, sequela; Z97.8 Presence of other specified devices; F17.290 Nicotine dependence, other tobacco product, uncomplicated; K59.09 Other constipation
CPT/HCPCS: 80048; 85025; 96361; 96374; 99283; A4216; J2405